=== PATIENT | female | born 1955 | race Caucasian/White ===

== ENCOUNTER → 2016-11-26 | Day surgery (SDC) | payer OTHER ==
[~2016-11-26] MED LIST: BUPIVACAINE/EPINEPHRINE 0.25% PF 10 ML VIAL ONE; KETOROLAC TROMETHAMINE 30 MG/ML (IVP) VIAL IV PUSH ONE; LACTATED RINGER'S 1000 ML INJ 1,000 ML ONE; LIDOCAINE 1%/EPINEPHrine 1:100,000 SOLN 20 ML VIAL ONE; ONDANSETRON HCL 4 MG/2 ML VIAL IV PUSH ONE; PROPOFOL 200 MG/20 ML AMP IV ONE; ceFAZolin 2 GM PREMIX 50 ML ONE
--- NOTE | 2016-11-26 20:24 | TN ---
cc: SANDRA BEAN M.D. DATE OF SURGERY 11/26/2016 PREOPERATIVE DIAGNOSIS Symptomatic umbilical hernia. POSTOPERATIVE DIAGNOSIS Symptomatic umbilical hernia. PROCEDURE Open repair umbilical hernia with mesh. SURGEON Dr. Sandra Bean [employer] HANNAH Contreras ANESTHESIA General. INDICATIONS This is a pleasant obese 61-year-old woman who has developed increasing symptoms associated with an umbilical hernia. She had a CT scan recently which demonstrated umbilical hernia containing fat. No bowel. It has been there for about a year and she desires operative repair. INTRAOPERATIVE FINDINGS About 5 cm umbilical hernia defect primarily approximated and covered with mesh. Estimated blood loss was less than 5 ml. DESCRIPTION OF PROCEDURE IN DETAIL The patient identified as Sarah Meléndez taken to the operating room, placed in supine position. Sequential compression devices were placed on bilateral lower extremities. Following induction of adequate general anesthesia, the patient's abdomen was prepped and draped in usual sterile fashion with Betadine. A proposed infraumbilical incision was made with a marking pen and the skin. A time-out procedure was performed. Following completion of time-out procedure to everyone's satisfaction within the room, the incision was carried out with a scalpel after instillation of local anesthetic in and around the umbilicus. Hemostasis was controlled with electrocautery. Herniated fatty tissue was cleared from surrounding subcutaneous fatty tissue and the umbilicus was lifted off the abdominal wall. A small defect right at the umbilicus and below the umbilicus were discovered. The anterior fascia was circumferentially cleared. The primary defect was approximated with interrupted inverted 0 Prolene sutures. There was not much tension on the closure at all. From a 3 x 6 inch piece of ProLite mesh an appropriate size piece was then cut and placed in the onlay position. It was held in position making the mesh taut, first at the 3 and then 9 o'clock positions, then the 12 and 6 o'clock positions. Sutures placed at each corner of the mesh to create a taut broad coverage of the primary hernia defect closure. Wound was irrigated copiously with saline. There is no evidence of bleeding. The umbilicus was reformed with 2 interrupted 2-0 Vicryl sutures. 2-0 Vicryl was placed in the deep dermis and subcutaneous tissue and a running 4-0 Monocryl subcuticular suture was used to close the skin. Dressings were applied with Mastisol and one-half brown Steri-Strips, gauze and Tegaderm. An abdominal binder completed the dressing. The patient tolerated the procedure without apparent complication. Sponge, needle and instrument counts were correct at the case. This procedure was assisted by my nurse practitioner. The skill set of the nurse practitioner was medically necessary to provide appropriate visualization of the operative field and to facilitate improved efficiency in the operation. The hand frame surgical elastic knitter was in the back table providing appropriate instrumentation while the nurse practitioner assisted me directly through the entirety of the procedure. MD LORETTA Rehman/MALATHI /3:12 PM /8:15 PM
== END | disposition home or self-care (01) ==
LOC: ESDC 11:52
PROVIDERS: ATTEND Surgery Trauma Surgery
DX: K42.9 Umbilical hernia without obstruction or gangrene (principal)
CPT/HCPCS: 00750; 49585; C1781; J0690; J1885; J2405; J3010; J7120